=== PATIENT | male | born 1990 | race African-American/Black ===

== ENCOUNTER 2024-06-29 04:57 | Emergency (ER) | payer SELFPAY ==
[~2024-06-29] VITALS: Ht 190.5 cm; Wt 84.8 kg
[2024-06-29 05:06] VITALS: BP 148/82; PULSE 95; RESP 16; TEMP 98.1; O2SAT 99
[2024-06-29 05:44] VITALS: BP 142/88; PULSE 92; RESP 16; TEMP 98.2; O2SAT 99
== END 2024-06-29 05:44 ==
LOC: MED 04:57
DX: S83.91XA Sprain of unspecified site of right knee, initial encounter (principal); V89.2XXA Person injured in unspecified motor-vehicle accident, traffic, initial encounter; Y93.89 Activity, other specified; Y92.89 Other specified places as the place of occurrence of the external cause; Y99.8 Other external cause status
CPT/HCPCS: 73562; 99283